=== PATIENT | female | born 1990 | race Caucasian/White ===

== ENCOUNTER 2016-11-29 05:05 | Inpatient (IN) ==
[2016-11-27 15:25] LABS: HEMATOCRIT 38.9 % (37.0-47.0); HEMOGLOBIN 13.4 g/dL (12.0-16.0); MCH 31.6 PG (27-31); MCHC 34.4 g/dL (33-37); MCV 91.7 FL (81-99); MPV 12.1 FL (7.4-10.4); RBC 4.24 XMIL (4.2-5.4)
--- NOTE | 2016-11-28 13:50 | HISTORY AND PHYSICAL ---
ADMITTING PHYSICIAN: Dr. Lang. ADMITTING DIAGNOSES: 1. Term . 2. Previous sections requesting repeat section. 3. Undesired fertility. SUMMARY: Minnie Wizina is a 26-year-old 3, para 2-0-0-2. Her blood type is B positive. Rubella immune. Hepatitis B surface antigen, HIV, and group B strep is negative. She has had 2 previous C-sections. She is requesting repeat . She also desires tubal sterilization. We discussed general risks of surgery including pain, bleeding, infection, bowel or bladder injury and anesthesia complications. We also discussed the permanent and nonreversible nature of tubal sterilization along with its recognized failure rate. Alternatives to permanent nonreversible sterilization have also been discussed. PAST MEDICAL HISTORY: Patient has had 2 previous C-sections. Otherwise no chronic medical or surgical illnesses. CURRENT MEDICATIONS: vitamins. ALLERGIES: None. PHYSICAL EXAMINATION: GENERAL: Shows a well-developed, well-nourished, gravid female. VITAL SIGNS: Stable. She is afebrile. CARDIOVASCULAR: Regular rate and rhythm without murmurs, rubs, or gallops. PULMONARY: Clear. BREASTS: No masses. ABDOMEN: Gravid. Cervix is closed. EXTREMITIES: Trace edema. IMPRESSION: 1. Term . 2. Previous section requesting repeat section. 3. Undesired fertility. PLAN: Will proceed repeat and permanent nonreversible tubal sterilization. cc: Christopher Lang MD
[2016-11-29] MEDS ORDERED: KEFZOL 1 GM/D5W 1 GM/50 ML IVPB IV PRN (05:07)
[2016-11-29] MEDS ORDERED: SODIUM CHLORIDE 0.9% INJ ONE (05:10)
[2016-11-29 05:38] LABS: MANUAL DIFF NEEDED? NO
[2016-11-29 05:38] LABS: URINE SOURCE VOIDED
[2016-11-29 05:41] LABS: BASO% 0.2 % (0.0-0.8); EOS# 0.28 X1000 (0.0-0.7); EOS% 1.9 % (0.0-10.0); HEMATOCRIT 39.9 % (37.0-47.0); HEMOGLOBIN 13.9 g/dL (12.0-16.0); IMM GRAN# 0.12 X1000 (0.0-0.04); IMM GRAN% 0.8 % (0.0-0.5); LYMPH# 2.66 X1000 (1.2-3.4); LYMPH% 17.7 % (20.5-51.1); MCH 31.7 PG (27-31); MCHC 34.8 g/dL (33-37); MCV 91.1 FL (81-99); MPV 12.3 FL (7.4-10.4); NEUT% 73.4 % (42.2-75.2); PLT 152 X1000 (130-400); RBC 4.38 XMIL (4.2-5.4)
[2016-11-29] MEDS: LR 1,000 ML IV SCH ×2 (05:41→06:47)
[2016-11-29 05:50] LABS: BILIRUBIN URINE NEGATIVE (NEGATIVE); BLOOD URINE NEGATIVE (NEGATIVE); CLARITY CLEAR (CLEAR); COLOR YELLOW; GLUCOSE URINE NEGATIVE (NEGATIVE); LEUKOCYTES URINE NEGATIVE (NEGATIVE); NITRITE URINE NEGATIVE (NEGATIVE); PH URINE 6.5; PROTEIN URINE NEGATIVE (NEGATIVE); UROBILINOGEN URINE NORMAL
[2016-11-29 05:51] LABS: UR AMPHETAMINES QUAL NONE DETECTED (NONE DETECT); UR BARBITUATES QUAL NONE DETECTED (NONE DETECT); UR BENZODIAZEPIN QUAL NONE DETECTED (NONE DETECT); UR CANNABINOIDS QUAL NONE DETECTED (NONE DETECT); UR COCAINE QUAL NONE DETECTED (NONE DETECT); UR MDMA QUAL NONE DETECTED (NONE DETECT); UR METHADONE QUAL NONE DETECTED (NONE DETECT); UR METHAMPHETAMINE QUAL NONE DETECTED (NONE DETECT); UR OPIATES QUAL NONE DETECTED (NONE DETECT); UR OXYCODONE QUAL NONE DETECTED (NONE DETECT); UR PCP QUAL NONE DETECTED (NONE DETECT); UR TCA QUAL NONE DETECTED (NONE DETECT)
[2016-11-29] MEDS ORDERED: BICITRA PO ONE (06:00)
[2016-11-29] MEDS ORDERED: PEPCID IV ONE (06:00)
[2016-11-29] MEDS ORDERED: DURAMORPH ONE (06:45)
[2016-11-29] MEDS ORDERED: ZOFRAN ONE (07:45)
[2016-11-29] MEDS ORDERED: PITOCIN ONE (07:45)
[2016-11-29] MEDS ORDERED: ROBINUL ONE (07:45)
[2016-11-29] MEDS ORDERED: TORADOL ONE (07:46)
[2016-11-29] MEDS ORDERED: PITOCIN 20 UNITS/LR 40 UNITS/2,000 ML IV.SOLN ONE (08:04)
--- NOTE | 2016-11-29 08:31 | OPERATIVE NOTE ---
PROCEDURE DATE: 11/29/2016 SURGEON: Christopher Lang M.D. TEMPLATE STORAGE CLERK: ORI Rico. ANESTHESIA: Spinal. OPERATION PERFORMED: Repeat low-transverse section and tubal sterilization. PREOPERATIVE DIAGNOSES: 1. Term . 2. Previous sections, requesting repeat section. 3. Desires permanent tubal sterilization. POSTOPERATIVE DIAGNOSES: 1. Term . 2. Previous sections, requesting repeat section. 3. Desires permanent tubal sterilization. FINDINGS: At 0734, a 6-pound 15-ounce female infant was delivered in the vertex presentation. There was a loose nuchal cord x1. There was light, nonparticulate, meconium-stained fluid. Apgars were 6 at 1 minute and 9 at 5 minute. SUMMARY: The patient was taken back to the operating room, where spinal anesthetic was placed. She was then placed in the supine position with a left lateral tilt. The abdomen was prepped and draped in the usual fashion. A catheter was placed in the urinary bladder. Once satisfactory conduction anesthesia was demonstrated, a repeat Pfannenstiel incision was made. This incision was taken down to the fascia, and the fascia was excised transversely. The underlying rectus muscles were bluntly and sharply dissected free. The rectus muscle was in the midline. The peritoneum was entered. The lower uterine segment was identified. A bladder flap was created. A low-transverse incision was made across the myometrium. This incision was extended laterally using digital pressure. Membranes were ruptured, revealing light, nonparticulate, meconium-stained fluid. The infant's head was delivered through this incision. The nuchal cord was reduced. The shoulders and body delivered immediately. The cord was clamped and cut, and the oropharynx was bulb suctioned. The was handed to the nurses for further care and evaluation. Cord blood was obtained. Placenta was manually removed. The uterus was delivered onto the abdominal wall, and explored. All membrane fragments were removed. The myometrium was reapproximated using a running #1 chromic suture, followed by several [id number] chromic sutures for complete hemostasis across the suture line. At this point, a bilateral fimbriectomy was performed. This patient desired permanent and nonreversible tubal sterilization. The uterus was placed back in the pelvic cavity. Uterine incisions and tubal ligation sites were examined and found to be hemostatic. First and then second sponge, instrument, and needle counts were reported as correct. The peritoneum was closed using a running chromic suture. The fascia was closed using running Vicryl sutures x2. All final sponge, instrument, and needle counts were reported as correct. The adipose tissue was reapproximated using running 3-0 Vicryl suture. The skin edges were reapproximated using a running 4-0 Biosyn suture. Blood loss was estimated at 400 mL. There were no complications. The patient went to the recovery room in stable condition. cc: Christopher Lang MD
[2016-11-29] MEDS ORDERED: DEMEROL PO PRN (08:48)
[2016-11-29] MEDS ORDERED: DULCOLAX PR PRN (08:48)
[2016-11-29] MEDS ORDERED: HYDROXYZINE PO PRN (08:48)
[2016-11-29] MEDS ORDERED: AMBIEN PO PRN (08:48)
[2016-11-29] MEDS ORDERED: BOOSTRIX VACCINE IM ONE (08:48)
[2016-11-29] MEDS ORDERED: PITOCIN IM PRN (08:48)
[2016-11-29] MEDS ORDERED: NORCO-10 PO PRN (08:48)
[2016-11-29] MEDS ORDERED: HYDROXYZINE IM PRN (08:48)
[2016-11-29] MEDS ORDERED: DEMEROL IM PRN (08:48)
[2016-11-29] MEDS ORDERED: CYTOTEC PO PRN (08:48)
[2016-11-29] MEDS ORDERED: PITOCIN 20 UNITS/LR 20 UNITS/1,000 ML IV.SOLN IV ONE (08:48)
[2016-11-29] MEDS ORDERED: MYLICON PO PRN (08:48)
[2016-11-29] MEDS ORDERED: M-M-R II VACCINE SUBQ ONE (08:48)
[2016-11-29] MEDS ORDERED: NORCO-5 PO PRN (08:48)
[2016-11-29] MEDS ORDERED: PHENERGAN IM PRN (08:48)
[2016-11-29] MEDS ORDERED: PERCOCET-5 PO PRN (08:48)
[2016-11-29] MEDS ORDERED: NARCAN INJ PRN (09:29)
[2016-11-29] MEDS ORDERED: ZOFRAN IV PRN ×2 (09:29)
[2016-11-29] MEDS ORDERED: ZOFRAN ODT PO PRN (09:29)
[2016-11-29] MEDS ORDERED: BENADRYL IV PRN (09:29)
[2016-11-29] MEDS ORDERED: TORADOL IV PRN (09:30)
[2016-11-29] MEDS ORDERED: MORPHINE IV PRN (09:30)
[2016-11-29] MEDS ORDERED: PNEUMOVAX 23 IM ONE (11:30)
[2016-11-29] MEDS: PITOCIN 10 UNITS/LR 10 UNIT/1,000 ML IV.SOLN IV SCH ×2 (13:00→23:57)
[2016-11-29] MEDS: MYLICON PO SCH ×3 (14:16→20:28)
[2016-11-29] MEDS: TORADOL IV SCH ×2 (15:56→20:27)
[2016-11-29] MEDS: ZOLOFT PO SCH (20:27)
[2016-11-29] MEDS: PERICOLACE PO SCH (20:28)
[2016-11-30] MEDS: MYLICON PO SCH ×7 (01:56→19:52)
[2016-11-30] MEDS: TORADOL IV SCH (03:11)
[2016-11-30 06:18] LABS: HEMOGLOBIN 11.3 g/dL (12.0-16.0); MCHC 33.2 g/dL (33-37); MCV 93.4 FL (81-99); MPV 12.6 FL (7.4-10.4); RBC 3.64 XMIL (4.2-5.4)
[2016-11-30] MEDS ORDERED: LR 1,000 ML IV SCH (08:08)
[2016-11-30] MEDS: MOTRIN PO PRN ×2 (08:54→16:54)
[2016-11-30] MEDS: PERCOCET-10 PO PRN ×2 (08:54→13:21)
[2016-11-30] MEDS: PRECARE PO SCH ×2 (08:55→13:02)
[2016-11-30] MEDS: DEMEROL PO PRN ×2 (16:54→18:17)
[2016-11-30] MEDS: ZOLOFT PO SCH (19:53)
[2016-11-30] MEDS: PERICOLACE PO SCH (19:55)
[2016-12-01] MEDS: ZOLOFT PO SCH (05:51)
[2016-12-01] MEDS: MYLICON PO SCH ×5 (05:51→16:29)
[2016-12-01] MEDS: MOTRIN PO PRN (08:33)
[2016-12-01] MEDS: DEMEROL PO PRN ×3 (08:33→16:29)
[2016-12-01] MEDS: PRECARE PO SCH (08:33)
[2016-12-01 08:45] VITALS: BP 130/80
--- NOTE | 2016-12-02 02:54 | DISCHARGE SUMMARY ---
ADMISSION DATE: 11/29/2016 DISCHARGE DATE: 12/01/2016 DATE OF ADMISSION: 11/29/2016. DATE OF DISCHARGE: 12/01/2016. ADMITTING DIAGNOSES: 1. Term . 2. Previous , requesting repeat section. 3. Undesired fertility. POSTOPERATIVE DIAGNOSES: 1. Term . 2. Previous , requesting repeat section. 3. Undesired fertility. PRINCIPAL PROCEDURES: Repeat and tubal sterilization. SUMMARY: Minnie Ferguson is a 26-year-old, 3, para 2-0-0-2 who has had 2 previous sections. She requested a repeat and tubal sterilization. She was therefore admitted to the hospital and underwent a repeat low transverse and bilateral fimbriectomy. She delivered a female weighing 6 pounds and 15 ounces with Apgars of 6 at 1 minute, 9 at 5 minutes. There were no intraoperative complications. Following delivery, the patient did well. She remained afebrile and all vital signs were stable. She had an admission hemoglobin and hematocrit of 13.9/39.9 with discharge hemoglobin and hematocrit being 11.3/34. On the day of discharge, cardiac and pulmonary examination is normal. Bowel and bladder function was normal. The incision was clean and dry and she was having scant vaginal bleeding. PLAN: Ms. Ferguson will be discharged today. We will see her back in the office in 1 week. Routine discharge instructions, activity limitations, and precautions were discussed. She wanted to start Zoloft due to a history of depression with previous deliveries and we will also send her home with Percocet 10 #30 and Motrin 800 mg for her per postoperative pain. She will continue vitamins. cc: Christopher Lang MD
== END 2016-12-01 16:55 | disposition home or self-care (01) ==
LOC: P.LD 05:05 → P.WC 18:03
PROVIDERS: ADMIT Obstetrics & Gynecology; ATTEND Obstetrics & Gynecology